=== PATIENT | female | born 1940 | race Caucasian/White ===

== ENCOUNTER 2023-12-07 01:06 | Emergency (ER) | payer OTHER ==
[2023-12-07 01:30] VITALS: TEMP 97.4; BMI 31.8
[2023-12-07 02:47] LABS: BASO % 0.9 % (0-2.0); HEMOGLOBIN 11.4 GM/dL (10.7-15.3); MCH 29.4 pg (25.7-33.7); MCHC 32.6 g/dl (32.0-36.0); MEAN PLT VOLUME 8.2 fl (7.5-11.1); MONO % 11.1 % (3.8-10.2); PLATELET COUNT 243 10^3/uL (134-434); RBC 3.89 M/mm3 (3.60-5.2); RDW 17.5 % (11.6-15.6); WHITE BLOOD COUNT 8.4 K/mm3 (4.0-10.0)
[2023-12-07 03:06] LABS: POTASSIUM 4.3 mmol/L (3.5-5.1)
[2023-12-07 03:08] LABS: CALCIUM 7.7 mg/dL (8.5-10.1)
[2023-12-07 03:09] LABS: BLOOD UREA NITROGEN 18.4 mg/dL (7-18)
[2023-12-07 03:12] LABS: CREATININE 0.7 mg/dL (0.55-1.3)
[2023-12-07 03:14] LABS: BILIRUBIN,TOTAL 0.3 mg/dL (0.2-1); TOT PROT 6.1 g/dl (6.4-8.2)
[2023-12-07 06:02] VITALS: BP 131/78; PULSE 78; RESP 16
== END 2023-12-07 09:08 ==
LOC: JER 01:06
DX: M25.561 Pain in right knee (principal); W19.XXXA Unspecified fall, initial encounter
CPT/HCPCS: 36415; 70450-TC; 71045-TC-FY; 71250-TC; 72125-TC; 72170-TC-FY; 80053; 84484; 85025; 93005; 93010; 99285-25

== ENCOUNTER 2024-01-17 01:41 | Emergency (ER) | payer OTHER, MEDICARE ==
[2024-01-17 01:58] VITALS: RESP 17; TEMP 97.9; BMI 27.4
[2024-01-17 02:49] LABS: BASO % 0.4 % (0-2.0); EOS % 0.4 % (0-4.5); HEMATOCRIT 35.2 % (32.4-45.2); HEMOGLOBIN 11.8 GM/dL (10.7-15.3); LYMPH % 16.2 % (8-40); MCH 30.6 pg (25.7-33.7); MCHC 33.5 g/dl (32.0-36.0); MEAN CELL VOLUME 91.5 fl (80-96); MEAN PLT VOLUME 8.9 fl (7.5-11.1); MONO % 7.5 % (3.8-10.2); NEUT % 75.5 % (42.8-82.8); PLATELET COUNT 252 10^3/uL (134-434); RBC 3.84 M/mm3 (3.60-5.2); RDW 14.9 % (11.6-15.6); WHITE BLOOD COUNT 9.4 K/mm3 (4.0-10.0)
[2024-01-17 03:09] LABS: POTASSIUM 4.6 mmol/L (3.5-5.1)
[2024-01-17 03:12] LABS: ALBUMIN 3.3 g/dl (3.4-5.0); BLOOD UREA NITROGEN 20.8 mg/dL (7-18); CALCIUM 8.4 mg/dL (8.5-10.1); MAGNESIUM 1.1 mg/dL (1.8-2.4)
[2024-01-17 03:15] LABS: CREATININE 0.8 mg/dL (0.55-1.3)
[2024-01-17 03:17] LABS: BILIRUBIN,TOTAL 0.5 mg/dL (0.2-1); TOT PROT 6.7 g/dl (6.4-8.2)
[2024-01-17] MEDS ORDERED: MAGNESIUM SULFATE IN WATER 2 GM/50 ML IVPB IVPB ONE (03:37)
[2024-01-17] MEDS: MAGNESIUM SULF 50% (8.12 MEQ/2 ML-1 GM VIAL) IVPB ONE (04:11)
[2024-01-17 04:13] VITALS: BP 108/88; PULSE 80
[2024-01-17] MEDS ORDERED: ACETAMINOPHEN INJECTION 100 ML ONE (05:37)
[2024-01-17] MEDS: ACETAMINOPHEN 1000 MG/100 ML BAG IVPB ONE (05:41)
== END 2024-01-17 06:19 | disposition home or self-care (01) ==
LOC: JER 01:41
PROC: 3E033GC Introduction of Other Therapeutic Substance into Peripheral Vein, Percutaneous Approach (ICD-10-PCS; principal; 2024-01-17)
PROC: 3E033NZ Introduction of Analgesics, Hypnotics, Sedatives into Peripheral Vein, Percutaneous Approach (ICD-10-PCS; 2024-01-17)
DX: M25.511 Pain in right shoulder (principal); M25.512 Pain in left shoulder; M25.551 Pain in right hip; M25.552 Pain in left hip; W19.XXXA Unspecified fall, initial encounter
CPT/HCPCS: 36415; 70450-TC; 71045-TC-FY; 72125-TC; 72170-TC-FY; 73030-TC-LT-FY; 73030-TC-RT-FY; 80053; 83735; 84484; 85025; 93005; 93010; 99285-25; J0131

== ENCOUNTER 2024-04-17 12:26 | Inpatient (IN) | payer OTHER, MEDICARE ==
[2024-04-17 15:13] LABS: BASO % 0.5 % (0-2.0); HEMATOCRIT 33.8 % (32.4-45.2); HEMOGLOBIN 11.1 GM/dL (10.7-15.3); LYMPH % 24.9 % (8-40); MCH 29.9 pg (25.7-33.7); MCHC 32.7 g/dl (32.0-36.0); MEAN CELL VOLUME 91.4 fl (80-96); MEAN PLT VOLUME 8.7 fl (7.5-11.1); MONO % 10.3 % (3.8-10.2); NEUT % 63.3 % (42.8-82.8); PLATELET COUNT 218 10^3/uL (134-434); RDW 14.2 % (11.6-15.6); WHITE BLOOD COUNT 6.8 K/mm3 (4.0-10.0)
[2024-04-17 15:21] LABS: INR 1.33 (0.83-1.09); PROTHROMBIN TIME (PATIENT) 15.2 SEC (9.7-13.0)
[2024-04-17 15:24] LABS: ACTIVATED PTT 33.1 SECONDS (25.2-36.5)
[2024-04-17 15:30] LABS: POTASSIUM 4.6 mmol/L (3.5-5.1)
[2024-04-17 15:32] LABS: CALCIUM 8.2 mg/dL (8.5-10.1)
[2024-04-17 15:33] LABS: ALBUMIN 3.2 g/dl (3.4-5.0); BLOOD UREA NITROGEN 24.1 mg/dL (7-18); MAGNESIUM 1.1 mg/dL (1.8-2.4)
[2024-04-17 15:36] LABS: CREATININE 0.8 mg/dL (0.55-1.3)
[2024-04-17 15:37] LABS: BILIRUBIN,TOTAL 0.2 mg/dL (0.2-1)
[2024-04-17 15:38] LABS: TOT PROT 6.3 g/dl (6.4-8.2)
[2024-04-17 15:43] LABS: LACTIC ACID 3.3 mmol/L (0.4-2.0)
[2024-04-17] MEDS ORDERED: MAGNESIUM SULFATE IN WATER 2 GM/50 ML IVPB IVPB ONE (15:51)
[2024-04-17] MEDS: MAGNESIUM SULF 50% (8.12 MEQ/2 ML-1 GM VIAL) IVPB ONE (16:06)
[2024-04-17] MEDS: SODIUM CHLORIDE 500 ML IV STA (16:10)
[2024-04-17 16:35] LABS: HIV INTERPRETATION NEGATIVE (NEGATIVE)
[2024-04-17 17:11] LABS: EPI CELLS 2 /uL (0-25.1); HYALINE CASTS 0 /uL (0-3.1); PH,URINE 6.5 (5.0-8.0); URINE APPEARANCE CLEAR; URINE BACTERIA 1723 /uL (0-1359); URINE BILIRUBIN NEGATIVE (NEGATIVE); URINE COLOR YELLOW; URINE GLUCOSE (UA) NEGATIVE (NEGATIVE); URINE KETONE TRACE (NEGATIVE); URINE LEUK ESTERASE TRACE (NEGATIVE); URINE NITRITE NEGATIVE (NEGATIVE); URINE PROTEIN 1+ (NEGATIVE); URINE RBC 1345 /uL (0-23.9); URINE UROBILINOGEN 0.2 mg/dL (0.2-1.0); URINE WBC 17 /uL (0-25.8)
[2024-04-17 18:57] LABS: LACTIC ACID 3.5 mmol/L (0.4-2.0)
[2024-04-17] MEDS ORDERED: ACETAMINOPHEN 325 MG TABLET (FP) PO PRN (23:15)
[2024-04-18] MEDS: D5-1/2NS+20 MEQ KCL - 20 MEQ/1,000 ML INFUS.BAG IV SCH ×2 (00:12→01:29)
[2024-04-18] MEDS: HEPARIN NA (PORCINE) 5,000 UNITS/ML 1ML VIAL SQ SCH (01:06)
[2024-04-18] MEDS: APIXABAN 2.5 MG TABLET PO SCH (03:25)
[2024-04-18] MEDS: QUEtiapine FUMARATE 25 MG TABLET PO ONE (03:25)
[2024-04-18 08:09] LABS: BASO % 0.5 % (0-2.0); EOS % 1.2 % (0-4.5); HEMATOCRIT 32.7 % (32.4-45.2); LYMPH % 29.4 % (8-40); MCH 30.1 pg (25.7-33.7); MCHC 33.5 g/dl (32.0-36.0); MEAN CELL VOLUME 89.8 fl (80-96); MEAN PLT VOLUME 8.8 fl (7.5-11.1); MONO % 10.5 % (3.8-10.2); NEUT % 58.4 % (42.8-82.8); PLATELET COUNT 197 10^3/uL (134-434); RBC 3.64 M/mm3 (3.60-5.2); RDW 13.9 % (11.6-15.6); WHITE BLOOD COUNT 5.8 K/mm3 (4.0-10.0)
[2024-04-18 08:27] LABS: POTASSIUM 4.9 mmol/L (3.5-5.1)
[2024-04-18 08:32] LABS: BLOOD UREA NITROGEN 18.4 mg/dL (7-18); MAGNESIUM 1.3 mg/dL (1.8-2.4)
[2024-04-18 08:33] LABS: CALCIUM 8.4 mg/dL (8.5-10.1)
[2024-04-18 08:38] LABS: CREATININE 0.7 mg/dL (0.55-1.3)
[2024-04-18] MEDS ORDERED: PANTOPRAZOLE 40 MG TABLET PO SCH (10:00)
[2024-04-18] MEDS: levoFLOXacin 250 MG IVPB 500 MG/100 ML MG IVPB SCH (11:18)
[2024-04-18] MEDS ORDERED: APIXABAN 2.5 MG TABLET ONE (11:51)
[2024-04-18] MEDS ORDERED: PREGABALIN 100 MG CAPSULE ONE (11:51)
[2024-04-18] MEDS ORDERED: DIGOXIN 0.125 MG TABLET ONE (11:51)
[2024-04-18] MEDS ORDERED: QUEtiapine FUMARATE 25 MG TABLET ONE (11:52)
[2024-04-18] MEDS ORDERED: MAGNESIUM SULFATE IN WATER 2 GM/50 ML IVPB IVPB ONE (11:52)
[2024-04-18] MEDS ORDERED: LORazepam 2 MG/ML SDV VIAL IVPUSH PRN (12:17)
[2024-04-18] MEDS: DIVALPROEX SODIUM 125 MG SPRINKLE CAPS PO SCH (12:18)
[2024-04-18] MEDS: DIGOXIN 0.125 MG TABLET PO SCH (12:18)
[2024-04-18] MEDS: PREGABALIN 100 MG CAPSULE PO SCH (12:18)
[2024-04-18] MEDS: QUEtiapine FUMARATE 25 MG TABLET PO SCH ×2 (12:18→23:16)
[2024-04-18] MEDS: ATENOLOL 25 MG TABLET (FP) PO SCH (12:18)
[2024-04-18] MEDS: MAGNESIUM 2GM/50ML STERILE WATER IVPB IVPB ONE ×2 (12:19→13:59)
[2024-04-18] MEDS: MIRTAZAPINE 15 MG TABLET (FP) PO SCH (23:15)
[2024-04-18] MEDS: ROSUVASTATIN CA 10 MG TABLET PO SCH (23:15)
[2024-04-18] MEDS ORDERED: PANTOPRAZOLE 40 MG TABLET PO ONE (23:18)
[2024-04-18] MEDS ORDERED: DOCUSATE SODIUM 100 MG CAPSULE (FP) PO ONE (23:18)
[2024-04-18] MEDS: DOCUSATE SODIUM 100 MG CAPSULE (FP) PO SCH (23:18)
[2024-04-18] MEDS: PANTOPRAZOLE 40 MG TABLET PO SCH (23:19)
[2024-04-19 07:35] LABS: MAGNESIUM 1.7 mg/dL (1.8-2.4)
[2024-04-19] MEDS: MAGNESIUM SULF 50% (8.12 MEQ/2 ML-1 GM VIAL) IVPB ONE (10:10)
[2024-04-19 11:59] LABS: POTASSIUM 4.6 mmol/L (3.5-5.1)
[2024-04-19 12:04] LABS: ALBUMIN 3.2 g/dl (3.4-5.0); BLOOD UREA NITROGEN 14.5 mg/dL (7-18); CALCIUM 9.1 mg/dL (8.5-10.1)
[2024-04-19 12:09] LABS: BILIRUBIN,TOTAL 0.3 mg/dL (0.2-1); CREATININE 0.8 mg/dL (0.55-1.3); TOT PROT 6.3 g/dl (6.4-8.2)
[2024-04-19] MEDS ORDERED: MIDAZOLAM HCL 2 MG/2 ML SINGLE DOSE VIAL ONE (13:58)
[2024-04-19] MEDS ORDERED: ONDANSETRON 4 MG/2 ML VIAL ONE (13:59)
[2024-04-19] MEDS ORDERED: ONDANSETRON 4 MG/2 ML VIAL IVPUSH PRN ×2 (14:06→15:23)
[2024-04-19] MEDS ORDERED: PHENYLEPHRINE HCL 10 MG/1 ML SINGLE DOSE VIAL ONE (14:38)
[2024-04-19] MEDS ORDERED: LORazepam 2 MG/ML SDV VIAL IVPUSH PRN (15:23)
[2024-04-19] MEDS ORDERED: ACETAMINOPHEN 325 MG TABLET (FP) PO PRN (15:23)
[2024-04-19] MEDS: LACTATED RINGERS SOLUTION 1,000 ML IV SCH (16:23)
[2024-04-19] MEDS: D5-1/2NS+20 MEQ KCL - 20 MEQ/1,000 ML INFUS.BAG IV SCH (16:44)
[2024-04-19 17:01] VITALS: BMI 26.2
[2024-04-19] MEDS: APIXABAN 2.5 MG TABLET PO SCH (21:55)
[2024-04-19] MEDS: QUEtiapine FUMARATE 25 MG TABLET PO SCH (21:55)
[2024-04-19] MEDS: MIRTAZAPINE 15 MG TABLET (FP) PO SCH (21:56)
[2024-04-19] MEDS: DOCUSATE SODIUM 100 MG CAPSULE (FP) PO SCH (21:57)
[2024-04-19] MEDS: DIVALPROEX SODIUM 125 MG SPRINKLE CAPS PO SCH (21:57)
[2024-04-19] MEDS: ROSUVASTATIN CA 10 MG TABLET PO SCH (21:57)
[2024-04-20 07:13] LABS: BASO % 0.3 % (0-2.0); EOS % 0.9 % (0-4.5); HEMATOCRIT 34.7 % (32.4-45.2); HEMOGLOBIN 11.2 GM/dL (10.7-15.3); LYMPH % 14.7 % (8-40); MCH 29.6 pg (25.7-33.7); MCHC 32.3 g/dl (32.0-36.0); MEAN CELL VOLUME 91.6 fl (80-96); MEAN PLT VOLUME 8.5 fl (7.5-11.1); MONO % 12.6 % (3.8-10.2); NEUT % 71.5 % (42.8-82.8); PLATELET COUNT 185 10^3/uL (134-434); RBC 3.79 M/mm3 (3.60-5.2); RDW 13.7 % (11.6-15.6); WHITE BLOOD COUNT 7.9 K/mm3 (4.0-10.0)
[2024-04-20 07:25] LABS: POTASSIUM 4.5 mmol/L (3.5-5.1)
[2024-04-20 07:29] LABS: CALCIUM 8.7 mg/dL (8.5-10.1)
[2024-04-20 07:30] LABS: BLOOD UREA NITROGEN 11.5 mg/dL (7-18)
[2024-04-20 07:33] LABS: CREATININE 0.8 mg/dL (0.55-1.3)
[2024-04-20] MEDS ORDERED: TAMSULOSIN HCL 0.4 MG CAP PO SCH (08:30)
[2024-04-20] MEDS: PANTOPRAZOLE 40 MG TABLET PO SCH (12:01)
[2024-04-20] MEDS: ATENOLOL 25 MG TABLET (FP) PO SCH (12:02)
[2024-04-20] MEDS: QUEtiapine FUMARATE 25 MG TABLET PO SCH (12:03)
[2024-04-20] MEDS: PREGABALIN 100 MG CAPSULE PO SCH (12:03)
[2024-04-20] MEDS: DIGOXIN 0.125 MG TABLET PO SCH (12:04)
[2024-04-20] MEDS ORDERED: ACETAMINOPHEN 1000 MG/100 ML BAG IVPB PRN (13:10)
[2024-04-20] MEDS: levoFLOXacin 250 MG IVPB 500 MG/100 ML MG IVPB SCH ×2 (13:35→21:09)
[2024-04-20] MEDS: PANTOPRAZOLE SODIUM 40 MG VIAL IVPUSH SCH (13:55)
[2024-04-20] MEDS: HEPARIN NA (PORCINE) 5,000 UNITS/ML 1ML VIAL SQ SCH (13:55)
[2024-04-21 07:41] LABS: BASO % 0.4 % (0-2.0); EOS % 1.5 % (0-4.5); HEMOGLOBIN 10.4 GM/dL (10.7-15.3); LYMPH % 24.6 % (8-40); MCH 29.6 pg (25.7-33.7); MCHC 32.4 g/dl (32.0-36.0); MEAN CELL VOLUME 91.4 fl (80-96); MEAN PLT VOLUME 9.1 fl (7.5-11.1); MONO % 14.3 % (3.8-10.2); NEUT % 59.2 % (42.8-82.8); PLATELET COUNT 190 10^3/uL (134-434); RDW 13.9 % (11.6-15.6); WHITE BLOOD COUNT 7.3 K/mm3 (4.0-10.0)
[2024-04-21 07:51] LABS: POTASSIUM 4.9 mmol/L (3.5-5.1)
[2024-04-21 07:52] LABS: CALCIUM 8.7 mg/dL (8.5-10.1)
[2024-04-21 07:54] LABS: BLOOD UREA NITROGEN 10.8 mg/dL (7-18)
[2024-04-21 07:57] LABS: CREATININE 0.8 mg/dL (0.55-1.3)
[2024-04-21] MEDS ORDERED: DIGOXIN 0.125 MG TABLET PO SCH (09:45)
[2024-04-21] MEDS: levoFLOXacin 250 MG IVPB 500 MG/100 ML MG IVPB ONE (10:34)
[2024-04-21 10:49] LABS: MAGNESIUM 1.3 mg/dL (1.8-2.4)
[2024-04-21 10:51] LABS: PHOSPHOROUS 4.6 mg/dL (2.5-4.9)
[2024-04-21 10:57] LABS: N-TERMINAL BNP 2950.2 pg/ml (5-450)
[2024-04-21] MEDS: MAGNESIUM 2GM/50ML STERILE WATER IVPB IVPB ONE ×2 (13:26→15:02)
[2024-04-22 07:45] LABS: BASO % 0.6 % (0-2.0); EOS % 1.5 % (0-4.5); HEMATOCRIT 32.2 % (32.4-45.2); HEMOGLOBIN 10.5 GM/dL (10.7-15.3); LYMPH % 24.9 % (8-40); MCH 29.7 pg (25.7-33.7); MCHC 32.5 g/dl (32.0-36.0); MEAN CELL VOLUME 91.4 fl (80-96); MEAN PLT VOLUME 8.5 fl (7.5-11.1); MONO % 17.8 % (3.8-10.2); NEUT % 55.2 % (42.8-82.8); PLATELET COUNT 193 10^3/uL (134-434); RBC 3.52 M/mm3 (3.60-5.2); RDW 14.2 % (11.6-15.6); WHITE BLOOD COUNT 6.7 K/mm3 (4.0-10.0)
[2024-04-22 14:10] VITALS: BP 109/66; PULSE 90; RESP 20; TEMP 97.9
== END 2024-04-22 17:39 | DRG 660 ==
LOC: JER 12:26 → JERBED 22:46 → INTOOBSV 23:08 → OBSVTOIN 23:08 → JERBED 04-19 02:06 → J4W 04-19 02:25
PROVIDERS: ADMIT Internal Medicine; ATTEND Internal Medicine
PROC: 0T768DZ Dilation of Right Ureter with Intraluminal Device, Via Natural or Artificial Opening Endoscopic (ICD-10-PCS; principal; 2024-04-19 14:30)
PROC: BT1DYZZ Fluoroscopy of Right Kidney, Ureter and Bladder using Other Contrast (ICD-10-PCS; 2024-04-19 14:30)
DX: N13.6 Pyonephrosis (principal); E87.20 Acidosis, unspecified; E11.9 Type 2 diabetes mellitus without complications; E78.5 Hyperlipidemia, unspecified; F03.90 Unspecified dementia, unspecified severity, without behavioral disturbance, psychotic disturbance, mood disturbance, and anxiety; I48.91 Unspecified atrial fibrillation; E86.0 Dehydration; R33.9 Retention of urine, unspecified; E83.42 Hypomagnesemia; N31.9 Neuromuscular dysfunction of bladder, unspecified
CPT/HCPCS: 0241U-QW; 36415; 71045-TC-FY; 74177-TC; 76000-TC-FY; 80048; 80053; 80061; 80162; 81003; 82962; 83036; 83605; 83735; 83880; 84100; 84443; 84484; 85025; 85610; 85730; 86803; 87040; 87086; 87389; 93005; 93010; 93306-TC; 94760; 97116-GP; 97162-GP; 99285-25; C1758; C2617; G0378; J1644; Q9967

== ENCOUNTER 2024-06-25 20:47 | Inpatient (IN) | payer OTHER, MEDICARE ==
[2024-06-25] MEDS ORDERED: SODIUM CHLORIDE 1,000 ML IV ONE (21:19)
[2024-06-25] MEDS ORDERED: ACETAMINOPHEN INJECTION 100 ML ONE (21:30)
[2024-06-25 21:56] LABS: HEMATOCRIT 37.1 % (34.1-44.9); MCHC 29.6 g/dl (32.2-35.5); MEAN CELL VOLUME 94.4 fl (79.4-94.8); MEAN PLT VOLUME 10.6 fl (9.4-12.3); PLATELET COUNT 365 x10^3/uL (182-369); RDW 14.6 % (12.5-17.0)
[2024-06-25] MEDS: ACETAMINOPHEN 1000 MG/100 ML BAG IVPB ONE (22:02)
[2024-06-25] MEDS: SODIUM CHLORIDE 0.9% 1000 ML INFUS.BAG IV STA (22:02)
[2024-06-25 22:03] LABS: INR 1.99 (0.83-1.09); PROTHROMBIN TIME (PATIENT) 21.7 SEC (9.7-13.0)
[2024-06-25] MEDS ORDERED: CEFEPIME HCL/D5W 2 GM/50 ML BAG IVPB ONE (22:04)
[2024-06-25 22:06] LABS: ACTIVATED PTT 24.5 SECONDS (25.2-36.5)
[2024-06-25] MEDS: CEFEPIME HCL 2 GM VIAL (RESTRICTED TO ID) IVPB ONE (22:09)
[2024-06-25 22:14] LABS: POTASSIUM 4.9 mmol/L (3.5-5.1)
[2024-06-25 22:15] LABS: CALCIUM 8.5 mg/dL (8.5-10.1)
[2024-06-25 22:16] LABS: ALBUMIN 2.1 g/dl (3.4-5.0)
[2024-06-25 22:19] LABS: CREATININE 1.6 mg/dL (0.55-1.3)
[2024-06-25 22:21] LABS: BILIRUBIN,TOTAL 0.4 mg/dL (0.2-1); TOT PROT 6.6 g/dl (6.4-8.2)
[2024-06-25 22:23] LABS: LACTIC ACID 2.2 mmol/L (0.4-2.0)
[2024-06-25] MEDS: LACTATED RINGERS SOLUTION 1,000 ML/1,000 ML INFUS.BAG IV SCH (22:29)
[2024-06-25] MEDS ORDERED: VANCOMYCIN 1 GM PREMIX (F) 1 GM/200 ML BAG ONE (22:54)
[2024-06-25] MEDS: VANCOMYCIN 1,000 MG in DEXTROSE 5%-WATER - 500 ML IVPB ONE (23:03)
[2024-06-25 23:05] LABS: VENOUS BASE EXCESS -8.2 mmol/L (-2-2); VENOUS O2 SATURATION 65.8 % (70-80); VENOUS PCO2 36.4 mmHg (38-52); VENOUS PH 7.3 (7.310-7.410)
[2024-06-25 23:07] LABS: EPI CELLS 7 /uL (0-25.1); HYALINE CASTS 1 /uL (0-3.1); URINE APPEARANCE TURBID; URINE BACTERIA 14 /uL (0-1359); URINE BILIRUBIN NEGATIVE (NEGATIVE); URINE COLOR RED; URINE GLUCOSE (UA) NEGATIVE (NEGATIVE); URINE KETONE NEGATIVE (NEGATIVE); URINE LEUK ESTERASE 3+ (NEGATIVE); URINE NITRITE NEGATIVE (NEGATIVE); URINE PROTEIN 3+ (NEGATIVE); URINE UROBILINOGEN 0.2 mg/dL (0.2-1.0); URINE WBC 1518 /uL (0-25.8); YEAST REVIEW (NEGATIVE)
[2024-06-25 23:29] LABS: POTASSIUM 4.9 mmol/L (3.5-5.1)
[2024-06-25 23:31] LABS: ALBUMIN 1.7 g/dl (3.4-5.0)
[2024-06-25 23:35] LABS: CREATININE 1.4 mg/dL (0.55-1.3)
[2024-06-25 23:36] LABS: BILIRUBIN,TOTAL 0.5 mg/dL (0.2-1); TOT PROT 5.3 g/dl (6.4-8.2)
[2024-06-25 23:38] LABS: URINE RBC 208.6 /uL (0-23.9)
[2024-06-25] MEDS ORDERED: CEFTRIAXONE 1 G/50 ML PREMIX 50 ML IVPB ONE (23:57)
[2024-06-26] MEDS: LACTATED RINGERS SOLUTION 1,000 ML/1,000 ML INFUS.BAG IV SCH ×2 (00:02→04:00)
[2024-06-26] MEDS ORDERED: PIPERACILLIN/TAZOB 2.25 GM 2.25 GM/50 ML BAG IVPB ONE (03:22)
[2024-06-26] MEDS ORDERED: HEPARIN INFUSION - 25,000 UNITS/500 ML INFUS.BAG IVPB ONE (03:22)
[2024-06-26] MEDS ORDERED: NOREPINEPHRINE BITARTRATE/D5W 8 MG/250 ML BAG IVPB ONE (03:22)
[2024-06-26 03:32] LABS: POTASSIUM 3.6 mmol/L (3.5-5.1)
[2024-06-26 03:34] LABS: BLOOD UREA NITROGEN 61.4 mg/dL (7-18)
[2024-06-26 03:35] LABS: MAGNESIUM 1.5 mg/dL (1.8-2.4)
[2024-06-26 03:37] LABS: CREATININE 1.4 mg/dL (0.55-1.3)
[2024-06-26 03:38] LABS: PHOSPHOROUS 4.4 mg/dL (2.5-4.9)
[2024-06-26] MEDS: NOREPINEPHRINE 0.9 % NACL 8 MG/250 ML BAG IVPB SCH (03:41)
[2024-06-26] MEDS ORDERED: HEPARIN NA (PORCINE) 5,000 UNITS/ML 1ML VIAL ONE (03:43)
[2024-06-26] MEDS: HEPARIN INFUSION - 25,000 UNITS/500 ML INFUS.BAG IVPB SCH ×2 (03:59→19:45)
[2024-06-26] MEDS: PIPERACILLIN/TAZOB 2.25 GM 2.25 GM in DEXTROSE 5%-WATER - 50 ML IVPB SCH (03:59)
[2024-06-26] MEDS: HEPARIN NA (PORCINE) 5,000 UNITS/ML 1ML VIAL IVPUSH PRN ×2 (03:59)
[2024-06-26 04:03] LABS: CALCIUM 8.2 mg/dL (8.5-10.1)
[2024-06-26] MEDS: MAGNESIUM 1GM/D5W - 1 GM/100 ML IVPB IVPB ONE ×2 (05:53→10:14)
[2024-06-26] MEDS ORDERED: HEPARIN NA (PORCINE) 5,000 UNITS/ML 1ML VIAL SQ SCH (06:00)
[2024-06-26 06:54] LABS: ABSOLUTE IMMATURE GRANULOCYTES 0.23 x10^3/uL (0.0-0.031); BASOPHILS # 0.03 x10^3/uL (0.01-0.08); HEMATOCRIT 32.9 % (34.1-44.9); HEMOGLOBIN 9.5 g/dL (11.2-15.7); MCHC 28.9 g/dl (32.2-35.5); MEAN CELL VOLUME 97.1 fl (79.4-94.8); MEAN PLT VOLUME 11.1 fl (9.4-12.3); MONOCYTE # 0.88 x10^3/uL (0.24-0.86); MONOCYTE % 4.4 % (4.7-12.5); PLATELET COUNT 284 x10^3/uL (182-369); RDW 14.6 % (12.5-17.0)
[2024-06-26 07:05] LABS: CHLORIDE 117 mmol/L (98-107); POTASSIUM 3.2 mmol/L (3.5-5.1); SODIUM 151 mmol/L (136-145)
[2024-06-26 07:07] LABS: LACTIC ACID 2.1 mmol/L (0.4-2.0)
[2024-06-26 08:03] LABS: BLOOD UREA NITROGEN 60.2 mg/dL (7-18); CALCIUM 8.6 mg/dL (8.5-10.1)
[2024-06-26 08:04] LABS: CO2 22 mmol/L (21-32); GLUCOSE,RANDOM 291 mg/dL (74-106); MAGNESIUM 1.7 mg/dL (1.8-2.4)
[2024-06-26 08:06] LABS: CREATININE 1.3 mg/dL (0.55-1.3); SGOT/AST 31 U/L (15-37)
[2024-06-26 08:07] LABS: SGPT/ALT 25 U/L (13-61)
[2024-06-26 08:08] LABS: BILIRUBIN,TOTAL 0.4 mg/dL (0.2-1)
[2024-06-26 08:09] LABS: ALK PHOS 47 U/L (45-117)
[2024-06-26 08:15] LABS: ANION GAP 11 mmol/L (4-13)
[2024-06-26] MEDS: PANTOPRAZOLE SODIUM 40 MG VIAL IVPUSH SCH (09:58)
[2024-06-26] MEDS: MUPIROCIN 2% TOPICAL OINTMENT FOR DECOLONIZATION NS SCH (09:59)
[2024-06-26] MEDS: KCL 10 MEQ IVPB 10 MEQ/100 ML INFUS.BAG IVPB SCH (10:14)
[2024-06-26 10:36] LABS: INR 1.81 (0.83-1.09); PROTHROMBIN TIME (PATIENT) 19.9 SEC (9.7-13.0)
[2024-06-26 10:52] LABS: ACTIVATED PTT 143.9 SECONDS (25.2-36.5)
[2024-06-26] MEDS: PIPERACILLIN/TAZOB 3.375 GM 50 ML IVPB SCH (17:22)
[2024-06-26] MEDS ORDERED: AMIODARONE IN DEXTROSE,ISO-OSM 360 MG/200 ML BAG ONE (17:41)
[2024-06-26] MEDS: AMIODARONE IN DEXTROSE,ISO-OSM 150 MG/100 ML BAG IVPB ONE (18:00)
[2024-06-26] MEDS: AMIODARONE IN DEXTROSE,ISO-OSM 360 MG/200 ML BAG IV SCH ×2 (18:15→18:44)
[2024-06-26] MEDS: CHLORHEXIDINE GLUCONATE 4% CLEANSER FOR DECOLONIZATION TP SCH (21:36)
[2024-06-27 03:03] LABS: HEMATOCRIT 31.5 % (34.1-44.9); HEMOGLOBIN 9.6 g/dL (11.2-15.7); MCHC 30.5 g/dl (32.2-35.5); MEAN CELL VOLUME 93.2 fl (79.4-94.8); MEAN PLT VOLUME 10.8 fl (9.4-12.3); PLATELET COUNT 295 x10^3/uL (182-369); RDW 14.6 % (12.5-17.0)
[2024-06-27 06:57] LABS: POTASSIUM 3.5 mmol/L (3.5-5.1)
[2024-06-27 07:04] LABS: ALBUMIN 1.9 g/dl (3.4-5.0); BLOOD UREA NITROGEN 56.6 mg/dL (7-18)
[2024-06-27 07:05] LABS: BILIRUBIN,TOTAL 0.3 mg/dL (0.2-1); CALCIUM 8.6 mg/dL (8.5-10.1)
[2024-06-27 07:06] LABS: MAGNESIUM 2.2 mg/dL (1.8-2.4); TOT PROT 5.7 g/dl (6.4-8.2)
[2024-06-27 07:07] LABS: CREATININE 1.1 mg/dL (0.55-1.3); PHOSPHOROUS 3.3 mg/dL (2.5-4.9)
[2024-06-27 08:00] LABS: LACTIC ACID 2.5 mmol/L (0.4-2.0)
[2024-06-27 09:24] LABS: LACTIC ACID 2.7 mmol/L (0.4-2.0)
[2024-06-27] MEDS: VANCOMYCIN 1 GM PREMIX (F) 1 GM/200 ML BAG IVPB ONE (10:42)
[2024-06-28] MEDS: DEXMEDETOMIDINE PREMIX 400 MCG/100 ML BAG IVPB SCH (01:20)
[2024-06-28] MEDS ORDERED: PIPERACILLIN/TAZOB 2.25 GM 2.25 GM in DEXTROSE 5%-WATER - 50 ML IVPB SCH (03:00)
[2024-06-28 07:08] LABS: HEMATOCRIT 29.1 % (34.1-44.9); HEMOGLOBIN 8.9 g/dL (11.2-15.7); MCHC 30.6 g/dl (32.2-35.5); MEAN CELL VOLUME 92.1 fl (79.4-94.8); MEAN PLT VOLUME 11.5 fl (9.4-12.3); PLATELET COUNT 238 x10^3/uL (182-369); RDW 14.6 % (12.5-17.0)
[2024-06-28 07:25] LABS: POTASSIUM 3.1 mmol/L (3.5-5.1)
[2024-06-28 07:29] LABS: ALBUMIN 1.6 g/dl (3.4-5.0); BLOOD UREA NITROGEN 43.6 mg/dL (7-18); CALCIUM 8.2 mg/dL (8.5-10.1); MAGNESIUM 1.7 mg/dL (1.8-2.4)
[2024-06-28 07:32] LABS: CREATININE 0.9 mg/dL (0.55-1.3); PHOSPHOROUS 2.6 mg/dL (2.5-4.9)
[2024-06-28 07:34] LABS: BILIRUBIN,TOTAL 0.4 mg/dL (0.2-1)
[2024-06-28 07:42] LABS: LACTIC ACID 2.3 mmol/L (0.4-2.0)
[2024-06-28] MEDS: KCL 10 MEQ IVPB 10 MEQ/100 ML INFUS.BAG IVPB SCH (08:19)
[2024-06-28] MEDS: VANCOMYCIN 1 GM PREMIX (F) 1 GM/200 ML BAG IVPB ONE (14:04)
[2024-06-29 06:47] LABS: HEMATOCRIT 28.6 % (34.1-44.9); HEMOGLOBIN 8.9 g/dL (11.2-15.7); MCHC 31.1 g/dl (32.2-35.5); MEAN CELL VOLUME 91.1 fl (79.4-94.8); MEAN PLT VOLUME 11.5 fl (9.4-12.3); PLATELET COUNT 248 x10^3/uL (182-369); RDW 15.1 % (12.5-17.0)
[2024-06-29 07:08] LABS: POTASSIUM 3.2 mmol/L (3.5-5.1)
[2024-06-29 07:12] LABS: CALCIUM 8.5 mg/dL (8.5-10.1)
[2024-06-29 07:13] LABS: ALBUMIN 1.5 g/dl (3.4-5.0); MAGNESIUM 1.5 mg/dL (1.8-2.4)
[2024-06-29 07:16] LABS: PHOSPHOROUS 2.6 mg/dL (2.5-4.9)
[2024-06-29 07:18] LABS: BILIRUBIN,TOTAL 0.6 mg/dL (0.2-1)
[2024-06-29] MEDS ORDERED: ACETAMINOPHEN 1000 MG/100 ML BAG IVPB PRN (07:19)
[2024-06-29] MEDS: KCL 20 MEQ PREMIX BAG 20 MEQ/100 ML INFUS.BAG IVPB SCH (08:11)
[2024-06-29] MEDS: ACETAMINOPHEN 1000 MG/100 ML BAG IVPB SCH (09:34)
[2024-06-29] MEDS: ENOXAPARIN NA (PORCINE) 40 MG/0.4 ML DISP.SYRIN SQ SCH (11:08)
[2024-06-29] MEDS ORDERED: AMINO ACIDS 4.25%/D5W 1,000 ML IV SCH (11:45)
[2024-06-29 13:25] VITALS: BMI 21.9
[2024-06-29] MEDS: morphine SULFATE 4 MG/ML VIAL IVPUSH PRN (14:22)
[2024-06-29] MEDS: AMINO ACIDS 4.25%/D5W 1,000 ML IV SCH ×2 (15:15→15:51)
[2024-06-29] MEDS ORDERED: DIGOXIN 0.5 MG/2 ML AMPUL IVPUSH ONE ×2 (16:05→22:05)
[2024-06-29] MEDS: INSULIN ASPART SLIDING SCALE (NOVOLOG) 1 VIAL SQ SCH (16:53)
[2024-06-29] MEDS: DIGOXIN 0.5 MG/2 ML AMPUL IVPUSH ONE ×2 (16:58→22:03)
[2024-06-30 06:43] LABS: POTASSIUM 3.5 mmol/L (3.5-5.1)
[2024-06-30 06:48] LABS: CALCIUM 8.2 mg/dL (8.5-10.1)
[2024-06-30 06:49] LABS: ALBUMIN 1.3 g/dl (3.4-5.0); BLOOD UREA NITROGEN 40.2 mg/dL (7-18); MAGNESIUM 1.4 mg/dL (1.8-2.4)
[2024-06-30 06:52] LABS: CREATININE 1.1 mg/dL (0.55-1.3); PHOSPHOROUS 1.9 mg/dL (2.5-4.9)
[2024-06-30 06:53] LABS: BILIRUBIN,TOTAL 0.5 mg/dL (0.2-1); TOT PROT 4.6 g/dl (6.4-8.2)
[2024-06-30 07:57] LABS: HEMOGLOBIN 8.4 g/dL (11.2-15.7); MCHC 31.1 g/dl (32.2-35.5); MEAN CELL VOLUME 88.8 fl (79.4-94.8); MEAN PLT VOLUME 12.1 fl (9.4-12.3); PLATELET COUNT 231 x10^3/uL (182-369); RDW 15.7 % (12.5-17.0)
[2024-06-30] MEDS: MAGNESIUM 2GM/50ML STERILE WATER IVPB IVPB ONE (08:29)
[2024-06-30] MEDS: POTASSIUM PHOSPHATE 30 MM in SODIUM CHLORIDE 250 ML IVPB ONE (09:48)
[2024-06-30] MEDS ORDERED: DIGOXIN 0.5 MG/2 ML AMPUL IVPUSH SCH (10:00)
[2024-06-30] MEDS: SCOPOLAMINE HYDROBROMIDE 1 PATCH PATCH.TD72 TD SCH (11:21)
[2024-07-01 06:38] LABS: POTASSIUM 3.5 mmol/L (3.5-5.1)
[2024-07-01 06:40] LABS: ALBUMIN 1.2 g/dl (3.4-5.0); BLOOD UREA NITROGEN 35.7 mg/dL (7-18); CALCIUM 8.1 mg/dL (8.5-10.1); MAGNESIUM 1.6 mg/dL (1.8-2.4)
[2024-07-01 06:44] LABS: PHOSPHOROUS 3.2 mg/dL (2.5-4.9)
[2024-07-01 06:45] LABS: BILIRUBIN,TOTAL 0.4 mg/dL (0.2-1); HEMATOCRIT 26.9 % (34.1-44.9); HEMOGLOBIN 8.5 g/dL (11.2-15.7); MCHC 31.6 g/dl (32.2-35.5); MEAN CELL VOLUME 88.5 fl (79.4-94.8); MEAN PLT VOLUME 11.9 fl (9.4-12.3); PLATELET COUNT 227 x10^3/uL (182-369); RDW 15.7 % (12.5-17.0); TOT PROT 4.3 g/dl (6.4-8.2)
[2024-07-01] MEDS: MAGNESIUM 2GM/50ML STERILE WATER IVPB IVPB ONE (08:40)
[2024-07-01] MEDS: DIGOXIN 0.5 MG/2 ML AMPUL IVPUSH SCH (09:24)
[2024-07-01] MEDS ORDERED: AMINO ACIDS 4.25%/D5W 1,000 ML IV SCH (09:48)
[2024-07-01] MEDS: VANCOMYCIN 1 GM PREMIX (F) 1 GM/200 ML BAG IVPB ONE (11:40)
[2024-07-01] MEDS: AMINO ACIDS 4.25%/D5W 1,000 ML IV SCH (11:41)
[2024-07-01] MEDS ORDERED: INSULIN ASPART SLIDING SCALE (NOVOLOG) 1 VIAL SQ ONE (18:01)
[2024-07-02] MEDS: morphine SULFATE 4 MG/ML VIAL IVPUSH PRN (15:04)
[2024-07-03 15:05] VITALS: TEMP 98.5
[2024-07-04] MEDS: MORPHINE SULFATE/0.9% NACL/PF 100 MG/100 ML BAG IVPB SCH (10:00)
[2024-07-04 20:28] VITALS: BP 61/31; PULSE 87; RESP 12
== END 2024-07-05 07:45 | disposition expired | DRG 871 ==
LOC: JER 20:47 → JERBED 06-26 01:43 → JICU 06-26 04:55
PROVIDERS: ADMIT Internal Medicine Pulmonary Disease; ATTEND Internal Medicine Pulmonary Disease
DX: A41.9 Sepsis, unspecified organism (principal); G92.8 Other toxic encephalopathy; R65.21 Severe sepsis with septic shock; J96.01 Acute respiratory failure with hypoxia; E11.52 Type 2 diabetes mellitus with diabetic peripheral angiopathy with gangrene; N39.0 Urinary tract infection, site not specified; N17.9 Acute kidney failure, unspecified; E87.20 Acidosis, unspecified; I96 Gangrene, not elsewhere classified; I74.9 Embolism and thrombosis of unspecified artery; D84.9 Immunodeficiency, unspecified; E87.0 Hyperosmolality and hypernatremia; I24.89 Other forms of acute ischemic heart disease; F03.90 Unspecified dementia, unspecified severity, without behavioral disturbance, psychotic disturbance, mood disturbance, and anxiety; E11.9 Type 2 diabetes mellitus without complications; I10 Essential (primary) hypertension; I48.91 Unspecified atrial fibrillation; E78.5 Hyperlipidemia, unspecified; I25.10 Atherosclerotic heart disease of native coronary artery without angina pectoris; B95.2 Enterococcus as the cause of diseases classified elsewhere; E86.0 Dehydration; R31.9 Hematuria, unspecified
CPT/HCPCS: 0241U-QW; 36415; 71045-TC-FY; 73630-TC-RT-FY; 80048; 80053; 80162; 81003; 82550; 82553; 82803; 82962; 83605; 83735; 84100; 84484; 85025; 85027; 85610; 85730; 86850; 86900; 86901; 87040; 87086; 87186; 87481; 93005; 93010; 99291; G0480; J0131; J0282; J1644